=== PATIENT | male | born 2000 | race Caucasian/White ===

== ENCOUNTER → 2021-01-31 00:14 | Outpatient (CLI) | payer BC, SELFPAY ==
[2021-01-31 17:12] LABS: SARS-CoV-2 RNA PCR Negative
== END ==
PROVIDERS: PCP Pediatrics; Visit Provider Surgery
DX: Z01.812 Encounter for preprocedural laboratory examination (principal); Z20.822 Contact with and (suspected) exposure to COVID-19
CPT/HCPCS: C9803; U0003; U0005

== ENCOUNTER 2021-02-03 01:08 | Day surgery (SDC) | payer BC, SELFPAY ==
[2021-01-25 09:22] VITALS: BMI 17.4
--- NOTE | 2021-01-25 09:29 | PC.NURSE ---
PT GAVE VERBAL CONSENT TO SPEAK WITH MOTHER. MOTHER STATES PT IS AUTISTIC AND HAS ADHD. STAFF SHOULD CHOOSE WORDS CAREFULLY WHEN SPEAKING TO MARYAM. SHE WANTS PO VERSED GIVEN TO MARYAM IMMEDIATELY UPON ARRIVAL INTO [facility] PRIOR TO IV INSERTION
--- NOTE | 2021-02-03 11:42 | WPDANESEPPF ---
Anes - Initial Pre Proc Eval Procedure: Operation Date: 02/03/21 13:30 Proposed Procedures p Excision Left Flank Mass - Naeem Muir DO Date/Time: 02/03/21 11:42 Surgeon: Naeem Muir DO Pre Op Diagnosis: 2 cm left flank mass Patient Data Age: 20 Gender: M Height: 1.78 m Weight: 55 kg Allergies Allergy/AdvReac Type Severity Reaction Status Date / Time No Known Allergies Allergy Verified 02/03/21 11:36 Home Medications Medication Instructions Recorded Confirmed Type clomipramine 150 mg PO HS 01/25/21 01/25/21 History dextroamphetamine-amphetamine 15 mg PO BID 01/25/21 01/25/21 History [Adderall XR] Patient hx anesthesia problems: none Family hx anesthesia problems: none [facility] Past Medical History Medical History Acute anxiety ADHD Autism Surgical History Surgical History History of facial surgery x9 Social History Social History Smoking status: Never smoker Second hand tobacco smoke exposure: No Alcohol intake: never Substance use: never Living arrangements: with family Gender identity (if verbalized by the patient): Male Spiritual care concerns: No Anes - Eval Final PreProcedure Day of Procedure 02/03/21 11:42 Patient weight: normal Heart: regular rate and rhythm Lungs: clear to auscultation Airway: Mallampati scale class II Neurological: alert and oriented Last oral intake: >/= 8 hours ASA classification: II Emergent: no Anesthetic plan: proceed Anesthesia type and monitoring: general GIVS and standard monitoring Informed Consent: The patient's anesthetic plan and its attendant risks and benefits were discussed with the patient/family/POA. Questions were solicited and answers provided to the satisfaction of the patient/family/POA.
[2021-02-03] MEDS: MIDAZOLAM HCL (*CRX) 2 MG/2 ML VIAL IV PUSH (12:13)
[2021-02-03] MEDS: LACTATED RINGERS 1,000 ML 30 ML IV CONT (12:13)
[2021-02-03 12:16] VITALS: BP 112/53; PULSE 99; TEMP 36.5; O2SAT 100
--- NOTE | 2021-02-03 13:01 | PM.IMHP ---
H&P: HPI History of Present Illness Date/Time: 02/03/21 13:01 Chief Complaint: Left chest wall mass Narrative: this is a 20-year-old man who presents with a mass on his left chest wall. This is right near the edge of his rib cage. He was previously seen in the office and discussions were made with the patient and his mom. They now wish to proceed with excision of the mass. Review of Systems Review of Systems: All systems reviewed & are unremarkable except as noted in HPI and below Constitutional: Constitutional: Denies chills, Denies fever(s), Denies headache(s) and Denies weight loss Eyes: Eyes: Denies change in vision ENT: Denies dizziness, Denies headache(s), Denies neck mass and Denies throat swelling Cardiovascular: Cardiovascular: Denies chest pain, Denies lightheadedness and Denies dyspnea Respiratory: Respiratory: Denies cough, Denies dyspnea and Denies wheezing Gastrointestinal: Gastrointestinal: Denies abdominal pain, Denies change in bowel habits, Denies nausea and Denies vomiting Genitourinary: Genitourinary: Denies hematuria and Denies dysuria Musculoskeletal: Musculoskeletal: Reports as per HPI Integumentary/Breasts: Skin/Breast: Reports as per HPI Neurologic: Denies dizziness and Denies headache(s) Allergic/Immunologic: Allergic/Immunologic: Denies throat swelling and Denies wheezing PMFSH Past Medical History Medical History Acute anxiety ADHD Autism Surgical History Surgical History History of facial surgery x9 Social History Social History Smoking status: Never smoker Second hand tobacco smoke exposure: No Alcohol intake: never Substance use: never Living arrangements: with family Gender identity (if verbalized by the patient): Male Spiritual care concerns: No Meds Home Medications and Allergies Home Medications Medication Instructions Recorded Confirmed Type clomipramine 150 mg PO HS 01/25/21 02/03/21 History dextroamphetamine-amphetamine 15 mg PO BID 01/25/21 02/03/21 History [Adderall XR] Allergies Allergy/AdvReac Type Severity Reaction Status Date / Time No Known Allergies Allergy Verified 02/03/21 11:36 Vital Signs Vital Signs - 24 hr 02/03/21 12:16 Temperature 36.5 C Pulse Rate 99 Blood Pressure 112/53 L Pulse Oximetry 100 Exam Const: General: no acute distress and alert Orientation/consciousness: patient oriented x3 HENMT: Head: normocephalic and atraumatic Ears: hearing grossly normal bilaterally General nose exam: Normal nares present Mouth: Yes Normal oral and palatal mucosa present Eyes: Periorbital: periorbital findings normal Sclera: sclerae normal EOM: EOMs intact bilaterally Neck: Neck: normal visual inspection, no lymphadenopathy and trachea midline Chest: Chest palpation & inspection: normal inspection of the chest Resp: Effort & Inspection: normal respiratory effort Auscultation: clear to auscultation bilaterally Cardio: Jugular venous distension: no JVD Rate: regular rate Rhythm: regular rhythm Heart sounds: S1 normal heart sound present and S2 normal heart sound present Peripheral pulses: Peripheral pulses 2+ throughout GI: Inspection: normal to inspection GI Palp: Yes Soft to palpation, No Tenderness to palpation present (GI), No Guarding due to palpation present (GI) and No Rebound tenderness present Percussion: Yes normal to percussion Auscultation: normal bowel sounds : General: Yes no CVA tenderness Back/Spine/Pelvis: Back: no CVA tenderness Skin: Other: 2 cm soft, mobile mass at the left costal margin Neuro: General: patient oriented x3, no focal motor deficits and CN's II-XI intact bilaterally Cognition (Neuro): normal cognition Speech: normal speech Motor exam (neuro): 5/5 motor strength present throughout
--- NOTE | 2021-02-03 13:03 | WPDHPUPDATE1 ---
History and Physical Update Update Date/Time: 02/03/21 13:03 History and Physical has been reviewed, including an updated exam of the patient. There are NO changes in the patient's condition. Risks, benefits, and alternatives have been discussed and questions answered. Patient agrees to proceed with procedure.
[2021-02-03] MEDS: ceFAZolin 2 GM/D5W 50 ML 2 GM/50 ML BAG IVPB (13:20)
[2021-02-03] MEDS: LIDO 1%/EPINEPHRINE/PF 1:200,000 30 ML VIAL 5 ML XX (13:36)
--- NOTE | 2021-02-03 13:56 | W.PM.PROC2 ---
Procedure Note - Detailed Date of Procedure 02/03/21 Pre-op Diagnosis 2 cm left chest wall mass Post-op Diagnosis same Procedure Performed 1. Excision of 2 cm left chest wall mass 2. Layered closure Surgeon Naeem Muir, DO Anesthesia MAC and local ( 1% lidocaine with epinephrine) Indications this is a 20-year-old man who presents with a palpable mass on his left chest wall. This has gradually grown with time and the patient is concerned about the nature of this. He denies any significant pain or discomfort in the region. Discussions were made with the patient about treatment options and decision was made to proceed with excision of 2 cm left chest wall mass. Findings 2 cm left chest wall mass was excised completely. On the patient's left lower chest near the costal margin, there was a 2 cm subcutaneous mass that appeared have a lipomatous consistency. The mass was completely excised intact and was sent to the lab for pathology. The incision was then closed in layers with 3 0 Vicryl deep dermal layer inverted interrupted suture followed by 4 0 Monocryl running subcuticular suture. Description of Procedure Procedure as well as risks, benefits, and alternatives were discussed with the patient. Written consent was obtained and placed in chart prior to procedure. Patient was brought back to surgical suite. He was placed supine on operating table. Time-out was done to confirm patient and procedure. IV sedation was then administered by the Anesthesia Department. His left chest wall area was prepped and draped in sterile fashion using chlorhexidine prep. 1% lidocaine with epinephrine was infiltrated locally around the mass. A 2 cm transverse incision was made directly over the mass using a 15 blade scalpel. The mass was then bluntly and sharply dissected free from the surrounding subcutaneous attachments using a 15 blade scalpel and curved hemostats. The mass was completely excised intact. The wound bed was then inspected and no further masses were present. Electrocautery was used for hemostasis. The deep dermis was then reapproximated using 3 0 Vicryl inverted interrupted sutures. The skin was then reapproximated using 4 0 Monocryl running subcuticular suture. Exofin glue was then applied on top. The patient was then awakened from anesthesia and transferred to recovery. Estimated Blood Loss 2 Pathology yes ( 2 cm left chest wall mass) Complications No immediate complications Condition stable Disposition same day
[2021-02-03 14:04] VITALS: BP 103/48; PULSE 120; RESP 22; TEMP 36.8; O2SAT 100
[2021-02-03 14:17] VITALS: BP 99/48; PULSE 102; RESP 14; O2SAT 92
[2021-02-03 14:28] VITALS: BP 128/75; PULSE 125; RESP 14
[2021-02-03 14:55] VITALS: BP 107/71; PULSE 85; RESP 14
== END 2021-02-03 15:03 | disposition home or self-care (01) ==
PROVIDERS: PCP Pediatrics; Visit Provider Surgery
PROC: (CPT 21555; principal; 2021-02-03 13:30)
DX: D17.1 Benign lipomatous neoplasm of skin and subcutaneous tissue of trunk (principal); F41.9 Anxiety disorder, unspecified; F90.9 Attention-deficit hyperactivity disorder, unspecified type; F84.0 Autistic disorder
CPT/HCPCS: 21555; 88304; C9803; J0690; J2250; J2704; J3010; J7120; U0003; U0005

== ENCOUNTER 2022-05-05 08:25 | Emergency (ER) | payer OTHER, SELFPAY ==
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
[2022-05-05 08:27] VITALS: BP 127/80; PULSE 82; RESP 16; TEMP 36.4; O2SAT 99
[2022-05-05 08:29] VITALS: O2SAT 100
[2022-05-05 08:30] VITALS: BP 127/80; O2SAT 100
[2022-05-05 08:31] VITALS: O2SAT 99
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
== END 2022-05-05 10:27 | disposition home or self-care (01) ==
PROVIDERS: Emergency Provider Emergency Medicine; PCP Pediatrics
DX: S13.9XXA Sprain of joints and ligaments of unspecified parts of neck, initial encounter (principal); F90.9 Attention-deficit hyperactivity disorder, unspecified type; F84.0 Autistic disorder; M43.22 Fusion of spine, cervical region; M47.813 Spondylosis without myelopathy or radiculopathy, cervicothoracic region; V43.53XA Car driver injured in collision with pick-up truck in traffic accident, initial encounter
CPT/HCPCS: 70450; 71045; 72125; 99284